=== PATIENT | male | born 1940 | race Caucasian/White ===

== ENCOUNTER 2020-09-19 12:52 | Outpatient (CLI) | payer MEDICARE ==
[2020-09-19 14:43] LABS: Hemoglobin 13.8 g/dL (13.5-17.5); Mean Corpuscular Hemoglobin 31.7 pg (27.0-33.0); Mean Corpuscular Volume 99.1 fl (81.2-95.1); Mean Platelet Volume 10.8 fl (7.4-10.4); Platelet Count 187 10x3/uL (150-450); Red Blood Cell (RBC) Count 4.35 10x6/uL (4.32-5.72); White Blood Cell (WBC) Count 6.6 10x3/uL (3.5-10.5)
[2020-09-19 15:39] LABS: Anion Gap 13 mmol/L (10-20); BUN (Urea Nitrogen) 18 mg/dL (8.4-25.7); Calc. Creatinine Clearance 0 mL/min (70-130); Calcium 8.9 mg/dL (7.8-10.44); Carbon Dioxide 27 mmol/L (23-31); Chloride 104 mmol/L (98-107); Glucose 119 mg/dL (83-110); Potassium 4.2 mmol/L (3.5-5.1); Sodium 140 mmol/L (136-145)
[2020-09-19 22:35] LABS: SARS-CoV-2 PCR by NAA Not Detected (NotDetected)
== END 2020-09-19 12:53 | disposition home or self-care (01) ==
LOC: CSHLAB 12:52
PROVIDERS: ATTEND Podiatrist Foot & Ankle Surgery
DX: Z01.812 Encounter for preprocedural laboratory examination (principal); Z20.822 Contact with and (suspected) exposure to COVID-19; M20.41 Other hammer toe(s) (acquired), right foot
CPT/HCPCS: 80048; 85027; 87635; U0003; U0005

== ENCOUNTER 2020-09-22 10:54 | Day surgery (SDC) | payer MEDICARE ==
[2020-09-21 10:34] VITALS: BMI 21.5
[2020-09-22] MEDS ORDERED: Lidocaine 1% MPF 2 ML VIAL ONE (12:05)
[2020-09-22] MEDS ORDERED: Bupivacaine PF 0.5% 30 ML VIAL ONE (12:39)
[2020-09-22] MEDS ORDERED: Neomycin-Polymyxin 1 ML AMP ONE (12:40)
[2020-09-22] MEDS ORDERED: PROPOFOL 20 ML ONE (12:45)
[2020-09-22] MEDS ORDERED: Fentanyl 100 MCG/2 ML VIAL ONE (12:45)
[2020-09-22] MEDS ORDERED: Lidocaine 1% PF 5 ML VIAL ONE (12:45)
[2020-09-22] MEDS ORDERED: ePHEDrine 50 MG/ML VIAL ONE (13:16)
[2020-09-22] MEDS ORDERED: Glycopyrrolate 0.2 MG/ML 5 ML SYRINGE ONE (13:16)
[2020-09-22] MEDS ORDERED: Ondansetron PF 4 MG/2 ML Vial ONE (13:27)
== END 2020-09-22 15:10 | disposition home or self-care (01) ==
LOC: CSHSDC 10:54
PROVIDERS: ATTEND Podiatrist Foot & Ankle Surgery
PROC: 0Y6M0ZB Detachment at Right Foot, Partial 2nd Ray, Open Approach (ICD-10-PCS; principal; 2020-09-22)
DX: M20.41 Other hammer toe(s) (acquired), right foot (principal)
CPT/HCPCS: J2405; J2704; J3010; J3490; S0020